=== PATIENT | female | born 1985 | race Caucasian/White ===

== ENCOUNTER 2017-12-04 00:58 | Inpatient (IN) | payer OTHER ==
[2017-12-04] MEDS ORDERED: OXYTOCIN/SODIUM CHLORIDE 250 ML IV ONE ×2 (01:37→02:37)
[2017-12-04] MEDS ORDERED: SODIUM CHLORIDE FLUSH 0.9% 10 ML SYRINGE IVP PRN (01:37)
[2017-12-04] MEDS ORDERED: ONDANSETRON 4 MG/2 ML VIAL IVP PRN (01:37)
[2017-12-04] MEDS ORDERED: fentaNYL 100 MCG/2 ML VIAL IVP PRN (01:37)
[2017-12-04] MEDS ORDERED: PENICILLIN G POTASSIUM 5,000,000 UNIT in SODIUM CHLORIDE 0.9% MINIBAG 100 ML IV ONE (01:37)
--- NOTE | 2017-12-04 01:48 | HISTORY & PHYSICAL EXAMINATION ---
Admit History - Instructions Squaxin/Slash: -Left hand click circles element as positive or present. -Right hand click slashes element as negative or not present. - Visit Reason Visit Reason: Contractions, Membranes rupture (00:30) - : 2 Parity: 1 Premature: 0 Ectopic: 0 : 0 Care: positive: [place] (diverted to [facility]) Risk/History: positive: None Complications This : positive: None - Other Maternal History Other Maternal History: Records unavailable & pt unable to provide history secondary to discomfort Review of Systems - Cardiovascular Cariovascular: denies: Irregular heart rate, Palpitations, Chest pain, Edema - Respiratory Respiratory: denies: Cough, SOB at rest, SOB with exertion - Gastrointestinal Gastrointestinal: reports: Abdominal pain (with uterine contractions) - Genitourinary Genitourinary: reports: Frequency, Urgency. denies: Dysuria - Musculoskeletal Musculoskeletal: reports: Back pain. denies: Muscle pain - Integumentary Integumentary: denies: Rash, Pruritis, Lesions - Neurological Neurological: denies: General weakness, Focal weakness, Headache, Dizziness - Psychiatric Psychiatric: reports: Anxiety. denies: Depression - All Other Systems All Other Systems: reports: Other (+LOF, clear, beginning @ 00:30, contractions since 11:30, progressively worse beginning at 17:00, +FM) Physical - Abdominal Exam Contraction Frequency (min/apart): 2 Contraction Intensity: positive: Strong Uterine Resting Tone: positive: Soft - Monitoring Heart Rate Baseline: 130 Strip Review: positive: Category I - Presentation Presentation: positive: Vertex - Vaginal Exam Membranes: positive: Membranes ruptured (per RN nitrazine positive on admission , BBOW on exam) Dilation (in cm): 9 Effacement (%): 100 Station: positive: -1 Cervical Position: positive: Anterior - Speculum Exam Speculum Exam Performed: positive: No Findings: positive: Nitrazine - Other Notes Labor Progress Note/Additional Text: Edie Greene is a 32 y/o @ 40w5d who presents as a diverted patient from [facility] w/o records for review. She reports an uncomplicated intentional & a previously uncomplicated w/ of viable male in 2016 w/o complication. She reports contractions t/o the day, progressively worse since 1700 w/ LOF @ 00:30, clear per her report. She is having extreme discomfort w/ her uterine contractions & had desired epidural anesthesia. O: AAOx3, very uncomfortable gravid female VSS EFM: BL 130bpm, +accels, no decels, mod damien TOCO: UCs q 2 min, palp strong SVE: 9/100/-1 BBOW on exam (nitrazine positive per RN) A: 32 y/o @ 40w5d per pt report, GBS pos per pt report, active spontaneous labor @ term SROM x1.5 hours for CAF per pt report, bulging forebag FHTs cat I P: 1. admit 2. admission labs & IV insert 3. Begin GBS prophylaxis w/ IV PCN per protocol 4. Analgesia/anesthesia per pt request 5. Anticipate
[2017-12-04] MEDS ORDERED: LACTATED RINGERS 1,000 ML IV ONE (01:50)
[2017-12-04] MEDS ORDERED: LACTATED RINGERS 1,000 ML IV SCH (02:00)
[2017-12-04] MEDS ORDERED: SODIUM CHLORIDE 0.9% MINIBAG 100 ML IV ONE (02:05)
[2017-12-04 02:08] LABS: BASOPHILS # (AUTO) 0.1 10^3/uL (0.0-0.1); BASOPHILS % (AUTO) 0.7 %; EOSINOPHILS # (AUTO) 0.1 10^3/uL (0.0-0.7); EOSINOPHILS % (AUTO) 0.6 %; HGB - HEMOGLOBIN 13.2 g/dL (12.0-16.0); LYMPHOCYTES # (AUTO) 2.9 10^3/uL (1.5-3.5); LYMPHOCYTES % (AUTO) 21.8 %; MEAN CORPUSCULAR HEMOGLOBIN 28.4 pg (27.0-31.0); MEAN CORPUSCULAR HGB CONC 33.7 g/dL (32.0-36.0); MEAN CORPUSCULAR VOLUME 84.2 fL (81.0-99.0); MONOCYTES # (AUTO) 1.3 10^3/uL (0.0-1.0); MONOCYTES % (AUTO) 9.8 %; NEUTROPHILS # (AUTO) 8.9 10^3/uL (1.5-6.6); NEUTROPHILS % (AUTO) 67.1 %; PLT - PLATELET COUNT 241 10^3/uL (130-450); RED BLOOD COUNT 4.65 10^6/uL (4.20-5.40); RED CELL DISTRIBUTION WIDTH 13.8 % (12.0-15.0); WHITE BLOOD COUNT 13.3 x10^3/uL (4.8-10.8)
[2017-12-04] MEDS ORDERED: diphenhydrAMINE 25 MG CAPSULE PO PRN (02:37)
[2017-12-04] MEDS ORDERED: WITCH HAZEL/GLYCERIN 1 EACH MED..PAD TOP PRN (02:37)
[2017-12-04] MEDS ORDERED: oxyCODONE 5 MG TABLET PO PRN (02:37)
[2017-12-04] MEDS ORDERED: HYDROCORTISONE/PRAMOXINE 10 GM PR PRN (02:37)
[2017-12-04] MEDS ORDERED: ZOLPIDEM 5 MG TABLET PO PRN (02:37)
--- NOTE | 2017-12-04 02:37 | DELIVERY NOTE ---
Delivery Note - Labor Labor: positive: Spontaneous - Delivery Method Delivery Method: positive: Spontaneous vaginal delivery - Presentation Presentation: positive: Vertex, OA - occiput anterior - Nuchal Cord Nuchal Cord: positive: Present (X1 Tight) - Anesthetic Anesthetic Type: - Amniotic Fluid Description Amniotic Fluid Description: positive: Clear - Episiotomy Type Episiotomy Type: positive: None - Laceration Laceration: positive: None - Delivery Outcome Delivery Outcome: positive: Livebirth - [place]: positive: Placed in direct skin contact with mother, Bulb syringe, Stimulated, Warmed, [place] used sex: positive: Female - Cord Cord: positive: 3 vessels - Placenta Placenta: positive: Intact (Grade 2) - Estimated Blood Loss Estimated Blood Loss (in cc): 300 - Post Delivery Events Post Delivery Events: positive: No post delivery events - Delivery Comments (Free Text/Narrative) Delivery Comments (Free Text/Narrative): Rapid 2nd Stage GBS prophylaxis could not be delivered in time 0204 Living Female w = 7 pounds 9.6 ounces (3449 g) 7/9
[2017-12-04] MEDS: ACETAMINOPHEN 325 MG TABLET PO SCH ×4 (05:42→20:00)
[2017-12-04] MEDS: IBUPROFEN 600 MG TABLET PO SCH ×3 (05:42→17:40)
[2017-12-04] MEDS ORDERED: PENICILLIN G POTASSIUM 2,500,000 UNIT in SODIUM CHLORIDE 0.9% 100ML 100 ML IV SCH (06:00)
--- NOTE | 2017-12-04 07:44 | OPERATIVE REPORT ---
DATE OF SERVICE: 12/04/2017 Physician: Noam Pastrana MD PREDELIVERY DIAGNOSES 1. Term , in active labor. 2. Rapidly progressing labor in second stage. 3. Group B strep positive maternal colonization. POSTDELIVERY DIAGNOSES 1. Unable to administer group B positive prophylaxis. 2. Term , in active labor. 3. Rapidly progressing labor in second stage. 4. Group B strep positive maternal colonization. 5. Successful vaginal delivery of a living female infant. PROCEDURE PERFORMED: Manually assisted vaginal delivery of a living female infant. SUPERVISOR MOLD YARD: Noam Pastrana MD, FACOG, FICS. ANESTHESIA: None. ESTIMATED BLOOD LOSS: 300 mL. COMPLICATIONS: None. DRAINS: None. FINDINGS: A living female infant was born at 0204 hours, weighing 3449 g, 7 pounds 9.6 ounces and scoring Apgars of 7/9. There were no obvious trauma or congenital anomalies. Infant had a lusty cry and recovered well. At 0208 hours, placenta was spontaneously expressed intact. There was a 3- vessel cord. There was no foul smell, only clear amniotic fluid. There was a nuchal cord x1 tight. Cervix, vagina and vulva were all intact. The uterus responded well to massage and IV Pitocin. TECHNIQUE: I was called from home at 0140 hours, and responded immediately to arrive at the hospital at 0150 hours. Rosmery Iniguez, certified nurse registered radiologic technologist, was standing by, due to the rapid progression of labor. I quickly reviewed the patient's history, and GBS prophylaxis was ordered but had not arrived. The patient was recently +1 station and near complete. heart tracing was normal for second stage. Patient was in a great deal of pain and had difficulty cooperating or concentrating on her pushing. At 2 o'clock, she was again checked and confirmed to be complete and +3 station. At that time, the forebag ruptured with a vigorous gush. Patient began to push with more concentrated effort, brought the head down to the perineum. Head atraumatic occurred at 0204 hours. Patient was very uncomfortable and had difficulty following instructions. Shoulders were atraumatically delivered shortly thereafter. was laid on the maternal abdomen and chest for warming. Cord was doubly clamped and transected. Cord blood samples were sent, and a segment of cord for gases, if necessary, harvested. Shortly thereafter, placenta was spontaneously delivered intact. The female genital tract was inspected, and found to be without tears or defect. Uterus responded well to massage and Pitocin. DISPOSITION: Awaiting records from [facility] including blood type, rubella status, etc. Mother, father, and baby all bonded well. TD: 12/04/2017 03:00 [facility]
[2017-12-04] MEDS: SODIUM CHLORIDE FLUSH 0.9% 10 ML SYRINGE IVP SCH ×2 (08:39→20:23)
[2017-12-04] MEDS: LACTATED RINGERS 1,000 ML IV SCH ×2 (08:39→17:40)
[2017-12-05] MEDS: ACETAMINOPHEN 325 MG TABLET PO SCH ×2 (02:00→09:33)
[2017-12-05] MEDS: IBUPROFEN 600 MG TABLET PO SCH ×2 (03:00→09:33)
[2017-12-05] MEDS: LACTATED RINGERS 1,000 ML IV SCH ×2 (04:26→09:33)
[2017-12-05] MEDS: SODIUM CHLORIDE FLUSH 0.9% 10 ML SYRINGE IVP SCH ×2 (04:33→09:33)
[2017-12-05 06:25] LABS: BASOPHILS # (AUTO) 0.1 10^3/uL (0.0-0.1); BASOPHILS % (AUTO) 0.5 %; EOSINOPHILS # (AUTO) 0.1 10^3/uL (0.0-0.7); HGB - HEMOGLOBIN 12.9 g/dL (12.0-16.0); LYMPHOCYTES # (AUTO) 2.3 10^3/uL (1.5-3.5); MEAN CORPUSCULAR HEMOGLOBIN 28.6 pg (27.0-31.0); MEAN CORPUSCULAR HGB CONC 33.3 g/dL (32.0-36.0); MEAN CORPUSCULAR VOLUME 85.9 fL (81.0-99.0); MEAN PLATELET VOLUME 9.1 fL (7.9-10.8); MONOCYTES # (AUTO) 0.9 10^3/uL (0.0-1.0); MONOCYTES % (AUTO) 7.9 %; NEUTROPHILS # (AUTO) 7.8 10^3/uL (1.5-6.6); NEUTROPHILS % (AUTO) 69.6 %; PLT - PLATELET COUNT 213 10^3/uL (130-450); RED BLOOD COUNT 4.52 10^6/uL (4.20-5.40); RED CELL DISTRIBUTION WIDTH 14.2 % (12.0-15.0); WHITE BLOOD COUNT 11.2 x10^3/uL (4.8-10.8)
--- NOTE | 2017-12-05 10:44 | Discharge Plan ---
Discharge Plan Disposition: 01 Home, Self Care Condition: Good Diet: Regular Activity Restrictions: Activity as Tolerated Shower Restrictions: No Driving Restrictions: No Weight Bearing: Full Weight No Smoking: If you smoke, Please STOP! Call for help. Follow-up with: Noam Pastrana MD [Provider Admit Priv/Credential] -
--- NOTE | 2017-12-05 10:47 | PROVIDER PROGRESS NOTE ---
Subjective - General Admit Date: 12/04/17 Procedure Date: 12/04/17 Post Op Days: 1 Procedure Performed: Normal vaginal delivery of a living female infant over intact perineum - Review of Systems Wound/Incisions: positive: Healing well Drain Type: None General: positive: No symptoms HEENT: positive: No symptoms Pulmonary: positive: No symptoms Cardiovascular: positive: No symptoms Gastrointestinal: positive: No symptoms, Flatus Genitourinary: positive: Other (Uterus 16-17 weeks size firm nontender Mild non- foul lochia rubra reported) Musculoskeletal: positive: No symptoms Psychiatric: positive: No symptoms All Other Systems: positive: Other (+LOF, clear, beginning @ 00:30, contractions since 11:30, progressively worse beginning at 17:00, +FM) Objective - Patient Data Vital Signs: Vital Signs x48h Temp Pulse Resp BP Pulse Ox 12/05/17 08:11 98.4 F 80 17 124/82 H 98 12/05/17 04:00 98.6 F 74 18 113/78 97 Weight: Weight 12/03/17 12/04/17 12/05/17 23:59 23:59 23:59 Weight (kg) 63.957 kg Intake & Output: Intake and Output Totals x24h 12/03/17 12/04/17 12/05/17 23:59 23:59 23:59 Intake Total 1833.333 Output Total 675 Balance 1158.333 - Lab Results Lab Results: 12/05/17 06:23 Other Lab Results: Lab Results x24hrs 12/05/17 Range/Units 06:23 WBC 11.2 H (4.8-10.8) x10^3/uL RBC 4.52 (4.20-5.40) 10^6/uL Hgb 12.9 (12.0-16.0) g/dL Hct 38.8 (37.0-47.0) % MCV 85.9 (81.0-99.0) fL MCH 28.6 (27.0-31.0) pg MCHC 33.3 (32.0-36.0) g/dL RDW 14.2 (12.0-15.0) % Plt Count 213 (130-450) 10^3/uL MPV 9.1 (7.9-10.8) fL Neut # (Auto) 7.8 H (1.5-6.6) 10^3/uL Lymph # (Auto) 2.3 (1.5-3.5) 10^3/uL [place] # (Auto) 0.9 (0.0-1.0) 10^3/uL Eos # (Auto) 0.1 (0.0-0.7) 10^3/uL Baso # (Auto) 0.1 (0.0-0.1) 10^3/uL Absolute Nucleated RBC 0.01 x10^3/uL Nucleated RBC % 0.1 /100WBC - Current Medications Current Medications: Current Medications Generic Name Dose Route Start Last Admin Trade Name Freq PRN Reason Stop Dose Admin Acetaminophen 650 mg 12/04/17 02:00 12/05/17 09:33 Tylenol PO Not Given Q6H DIA Lactated Ringer's 1,000 mls @ 100 mls/hr 12/04/17 03:00 12/05/17 09:33 Lr IV Not Given .Q10H DIA Ibuprofen 600 mg 12/04/17 03:00 12/05/17 09:33 Motrin PO Not Given Q6H DIA Sodium Chloride 10 ml 12/04/17 09:00 12/05/17 09:33 Normal Saline Flush 0.9% IVP Not Given 0100,0900,1700 DIA Witch Mery/Glycerin 1 each 12/04/17 02:37 12/04/17 04:07 Tucks TOP 1 each QID PRN Administration Hemorrhoids Physical Exam - Physical Exam General: positive: No acute distress HEENT: positive: Moist mucous membranes Neck: positive: Supple w/out meningeal sx Abdomen: positive: Normal Bowel sounds, Other (Normal exam) Female : positive: Enlarged uterus (16 week size nontender firm), Other Extremities: positive: No pedal edema Skin: positive: Warm and dry Neurologic: positive: Alert and Oriented X 3 Assessment/Plan - Assessment/Plan Assessment: Patient is recovered well from her vaginal delivery without symptoms of anemia complication. Hemoglobin had only a minimal drop. Patient desires discharge if possible but understands that requires more observation time due to her unmedicated GBS status. Plan: Prepare for maternal discharge today.
[2017-12-05 12:04] VITALS: BP 116/76
--- NOTE | 2017-12-05 12:19 | Labor Flowsheet ---
Labor Flowsheet Datetime Report Generated by CPN: 12/05/2017 12:19 Datetime: 12/04/2017 08:34 VITAL SIGNS NBP Sys/Lissett/Mean (mmHg): 117 : 71 : 81 Pulse: 95 Datetime: 12/04/2017 05:19 SpO2 (%): 100 Datetime: 12/04/2017 02:08 COMMUNICATION LaborFlag: Labor Datetime: 12/04/2017 02:00 UTERINE ACTIVITY Monitor Mode: External Frequency (min): 2-2.5 Quality: Strong Duration (sec): 65-120 Pattern: Normal: <= 5 Contractions in 10 Minutes Resting Tone (Palpate): Relaxed ASSESSMENT A FHR Baseline Rate : 125 Variability: Moderate 6-25 bpm Accelerations: 15X15 Decelerations: Early; Variable Actions for Decelerations: Oxygen Applied; IV Bolus Comments: L. tilt Datetime: 12/04/2017 01:57 PAIN Pain Scale: 10 Pain Presence: Intermittent Pain Type: Contraction Pain Location: Abdomen; Perineum Pain Relief Measures: Comfort Measures Pain Assessment Comments: Pt desired epidural, but d/t progress we were unable to get her any pain relief STAGE 2 Pushing: Coached on Pushing Pushing Position: Pushing with Contractions; Pushing Lithotomy Pushing Progress: Descent with Pushing
--- NOTE | 2017-12-05 12:33 | DISCHARGE SUMMARY ---
Physician: Noam Pastrana MD DATE OF ADMISSION: 12/04/2017 DATE OF DISCHARGE: 12/05/2017 DIAGNOSES 1. A 38-week gestation, in active labor. 2. Maternal GBS positive. 3. Rapid delivery, GBS prophylaxis not administered. HOSPITAL COURSE: The patient is a 32-year-old , 2, para 1-0-0-1, woman who presents in active labor, her care was at the [facility] clinic. Reference records. Other than positive GBS status, she did not have any problems during the course. She presented to Labor and Delivery very uncomfortable, and was met by Rosmery Iniguez CNM, who completed a basic history, after which I did another detailed interview with the patient, and examined her records. She had contractions beginning at about 10 p.m., and suspects her membranes began leaking at 0300 hours. She reports pelvic pressure. BASIC LABS: Blood type AB positive, antibody screen negative; RPR negative; hepatitis B surface antigen negative; hepatitis A and C status negative, HIV negative, Chlamydia and gonorrhea negative. Glucola challenge 139, and GBS status positive. Reference [facility] and the [facility] on [employer]. HOSPITAL COURSE: The patient was advancing quite rapidly, and moved from 6 cm to 9 cm in about 20 minutes. When I arrived at 0150 hours, the patient was complete and +3 station, with an uncontrollable urge to push. heart tracing was category 1. She began to push with good effort, and smoothly brought the infant to the perineum. At 0204 hours, a living female infant was born weighing 3449 grams (7 pounds 9.6 ounces), and scored Apgars of 7 and 9. Placenta was delivered intact. There was no excessive bleeding, and the uterus responded to massage and Pitocin. Reference delivery note. The patient rested on the day of delivery. She rapidly recovered self and infant care functions. She nursed without difficulty. On postdelivery day 1, the patient requested discharge. We reviewed warning and callback instructions. Infant will be in a boarder status, and patient intends to come back to nurse and care for the infant in the afternoon. LABORATORY DATA 1. Admission hemoglobin 13.2 with a white count of 13.3, and left shift. 2. On postop day 1, hemoglobin 12.9 with a white count of 11.2. The patient remained afebrile throughout her hospitalization. FOLLOWUP: [facility]. On her , it listed that sterilization may be her intended contraceptive means, and this will be discussed at that time. DISCHARGE MEDICATIONS: The patient declines analgesics and intends to simply take her [id number] Motrin and vitamins. TD: 12/05/2017 10:54
== END 2017-12-05 12:18 | disposition home or self-care (01) | DRG 775 ==
LOC: WFO 00:58 → FBP 01:02 → WFO 01:38 → FBP 11:00
PROVIDERS: ADMIT Obstetrics & Gynecology; ATTEND Obstetrics & Gynecology
PROC: 10E0XZZ Delivery of Products of Conception, External Approach (ICD-10-PCS; principal; 2017-12-04)
DX: O99.824 Streptococcus B carrier state complicating childbirth (principal); O62.3 Precipitate labor; O69.2XX0 Labor and delivery complicated by other cord entanglement, with compression, not applicable or unspecified; Z3A.40 40 weeks gestation of pregnancy; Z37.0 Single live birth
CPT/HCPCS: 85025; 86850; 86900; 86901; 99213